=== PATIENT | male | born 1970 | race African-American/Black ===

== ENCOUNTER 2019-11-08 10:27 | Inpatient (IN) | payer MEDICAID, OTHER ==
[~2019-11-08] VITALS: Ht 165.1 cm; Wt 70.9 kg
[2019-11-08] MEDS ORDERED: SODIUM CHLORIDE 0.9% 1,000 ML IV ONE ×2 (10:48→12:08)
[2019-11-08] MEDS ORDERED: KETOROLAC 30MG/ML VIAL IV ONE (11:00)
[2019-11-08] MEDS ORDERED: ONDANSETRON HCL 4MG/2ML INJ IV ONE (11:00)
[2019-11-08 11:31] LABS: BG CARBOXYHEMOGLOBIN 0.3 % (0.5-1.5); BG DEOXYHEMOGLOBIN 1.6 % (0.0-5.0); BG FRACTION INSPIRED OXYGEN 21; BG METHEMOGLOBIN 0.3 % (0.0-1.5); BG OXYGEN SATURATION 98.4 % (92.0-98.5); BG OXYHEMOGLOBIN 97.8 % (94.0-97.0); BG PCO2 < 8.9 mmHg (35.0-45.0); BG PH 7.056 (7.350-7.450); BG PO2 148.3 mmHg (75.0-100.0); BG SAMPLE SITE LEFT RADIAL; BG TOTAL HEMOGLOBIN 14.8 g/dL (12.0-18.0); BG VENT MODE ROOM AIR
[2019-11-08] MEDS ORDERED: SODIUM BICARBONATE 8.4% 1 MEQ/ML 50ML SYR IV ONE (11:45)
[2019-11-08 12:43] LABS: HEMOGLOBIN. 14.3 g/dL (14.0-18.0); MEAN CORPUSCULAR VOLUME 97.3 fL (80.0-94.0); MEAN PLATELET VOLUME 9.3 fl (7.4-10.4); PLATELET 331 x1000/uL (130-400); RED BLOOD CELL COUNT 4.62 mill/uL (4.7-6.1); RED CELL DISTRIBUTION WIDTH 13.5 % (11.6-14.6)
[2019-11-08 12:47] LABS: CHLORIDE 94 mEq/L (98-107)
[2019-11-08] MEDS ORDERED: INSULIN REGULAR (DRIP) 100 UNITS in SODIUM CHLORIDE 0.9% 99 ML IV ONE (13:04)
[2019-11-08] MEDS ORDERED: SODIUM CHLORIDE 0.9% 1,000 ML IV STA (13:04)
[2019-11-08 13:21] LABS: BETA HYDROXYBUTYRATE > 10.0 mMol/L (0.0-0.3)
[2019-11-08] MEDS: ENOXAPARIN 40MG/0.4ML SYR SUBCUT SCH (13:30)
[2019-11-08] MEDS ORDERED: ACETAMINOPHEN 325MG TABLET PO PRN (13:30)
[2019-11-08] MEDS ORDERED: SODIUM CHLORIDE 0.9% 1,000 ML IV SCH (13:30)
[2019-11-08] MEDS ORDERED: IPRATROPIUM/ALBUTEROL 0.5-3(2.5)MG/3ML NEB HHN PRN (13:30)
[2019-11-08] MEDS ORDERED: CLONIDINE 0.1MG TABLET PO PRN (13:30)
[2019-11-08] MEDS ORDERED: LIDOCAINE HCL 1% 20ML VIAL (Pyxis) INJ ONE (13:36)
[2019-11-08 14:05] LABS: PLATELET ESTIMATE NORMAL
[2019-11-08 15:01] LABS: CHLORIDE 95 mEq/L (98-107)
[2019-11-08 15:06] LABS: PHOSPHORUS 4.7 mg/dL (2.5-4.9)
[2019-11-08 16:41] LABS: CHLORIDE 96 mEq/L (98-107)
[2019-11-08 16:47] LABS: PHOSPHORUS 4.5 mg/dL (2.5-4.9)
[2019-11-08 18:02] LABS: CLARITY URINE CLEAR (CLEAR); COLOR URINE YELLOW (YELLOW); KETONES URINE 4+ (NEGATIVE); LEUKOCYTE ESTERASE URINE NEGATIVE (NEGATIVE); NITRITE URINE NEGATIVE (NEGATIVE); OCCULT BLOOD URINE TRACE (NEGATIVE); PROTEIN URINE 1+ (NEGATIVE); SPECIFIC GRAVITY URINE 1.025 (1.005-1.030); UROBILINOGEN URINE 0.2 E.U./dL (0.2-1.0)
[2019-11-08] MEDS ORDERED: CEFTRIAXONE 1 G PREMIX 50 ML IV SCH (20:00)
[2019-11-08] MEDS ORDERED: DEXTROSE 50% WATER 50ML SYRINGE IV ONE (23:31)
[2019-11-08 23:46] LABS: CHLORIDE 105 mEq/L (98-107)
[2019-11-09] VITALS (46 sets, daily range): BP systolic 107–198; BP diastolic 46–104
[2019-11-09 00:07] LABS: PHOSPHORUS 2.1 mg/dL (2.5-4.9)
[2019-11-09] MEDS: ONDANSETRON HCL 4MG/2ML INJ IV PRN ×4 (00:56→23:56)
[2019-11-09] MEDS: DEXT 5%/0.9% NACL KCL 20MEQ/L 1,000 ML IV SCH ×4 (01:43→20:52)
[2019-11-09] MEDS ORDERED: DEXTROSE 50% WATER 50ML SYRINGE IV PRN ×3 (01:45→07:30)
[2019-11-09] MEDS ORDERED: HYDROCODONE/ACETAMINOPHEN 5/325MG TABLET PO PRN (01:45)
[2019-11-09] MEDS: PANTOPRAZOLE SODIUM 40 MG/VIAL IV SCH (02:15)
[2019-11-09] MEDS ORDERED: METOCLOPRAMIDE HCL 10MG TABLET PO PRN (02:30)
[2019-11-09] MEDS: METOCLOPRAMIDE HCL 10MG/2ML VIAL IV PRN ×2 (02:55→19:26)
[2019-11-09] MEDS: MORPHINE SULFATE 2 MG/ML CPJ (NOT FOR IM USE) IV PRN ×2 (02:55→09:46)
[2019-11-09] MEDS ORDERED: INSULIN LISPRO 100 UNITS/ML SUBCUT SCH (04:00)
[2019-11-09] MEDS ORDERED: BLOOD SUGAR DIAGNOSTIC STRIP TEST SCH (04:00)
[2019-11-09 06:17] LABS: HEMATOCRIT. 39.8 % (42.0-52.0); HEMOGLOBIN. 13.2 g/dL (14.0-18.0); MEAN CORPUSCULAR HEMOGLOBIN 31.1 pg (28.0-32.0); MEAN CORPUSCULAR VOLUME 93.3 fL (80.0-94.0); RED BLOOD CELL COUNT 4.26 mill/uL (4.7-6.1); RED CELL DISTRIBUTION WIDTH 13.1 % (11.6-14.6)
[2019-11-09 06:19] LABS: CHLORIDE 104 mEq/L (98-107)
[2019-11-09 07:52] LABS: PLATELET ESTIMATE NORMAL
[2019-11-09 07:53] LABS: PLATELET 237 x1000/uL (130-400)
[2019-11-09] MEDS: BLOOD SUGAR DIAGNOSTIC STRIP TEST SCH ×18 (08:00→23:55)
[2019-11-09] MEDS: INSULIN REGULAR (DRIP) 100 UNITS in SODIUM CHLORIDE 0.9% 100 ML IV SCH (08:00)
[2019-11-09] MEDS: DEXT 5%/0.9% NACL 1,000 ML IV SCH ×2 (09:31→13:09)
[2019-11-09] MEDS: CEFTRIAXONE 1 G PREMIX 50 ML IV SCH ×2 (09:35→20:10)
[2019-11-09] MEDS ORDERED: INSULIN GLARGINE UD 100 UNITS/ML SYR SUBCUT SCH (10:00)
[2019-11-09 10:57] LABS: CHLORIDE 108 mEq/L (98-107)
[2019-11-09] MEDS: ENOXAPARIN 40MG/0.4ML SYR SUBCUT SCH (13:18)
[2019-11-09 15:54] LABS: CHLORIDE 114 mEq/L (98-107)
[2019-11-09 22:12] LABS: CHLORIDE 117 mEq/L (98-107)
[2019-11-10] VITALS (28 sets, daily range): BP systolic 100–183; BP diastolic 57–104
[2019-11-10] MEDS: INSULIN REGULAR (DRIP) 100 UNITS in SODIUM CHLORIDE 0.9% 100 ML IV SCH (00:03)
[2019-11-10] MEDS: BLOOD SUGAR DIAGNOSTIC STRIP TEST SCH ×14 (01:06→21:11)
[2019-11-10] MEDS: DEXT 5%/0.9% NACL KCL 20MEQ/L 1,000 ML IV SCH ×5 (01:07→17:55)
[2019-11-10 02:27] LABS: CHLORIDE 118 mEq/L (98-107)
[2019-11-10] MEDS: METOCLOPRAMIDE HCL 10MG/2ML VIAL IV PRN ×2 (04:28→18:35)
[2019-11-10 05:41] LABS: HEMATOCRIT. 38.4 % (42.0-52.0); HEMOGLOBIN. 13.2 g/dL (14.0-18.0); MEAN CORPUSCULAR HEMOGLOBIN 31.5 pg (28.0-32.0); MEAN CORPUSCULAR VOLUME 91.5 fL (80.0-94.0); MEAN PLATELET VOLUME 7.9 fl (7.4-10.4); PLATELET 266 x1000/uL (130-400); RED CELL DISTRIBUTION WIDTH 13.1 % (11.6-14.6)
[2019-11-10] MEDS ORDERED: DEXTROSE 50% WATER 50ML SYRINGE IV PRN ×2 (05:45)
[2019-11-10 05:49] LABS: CHLORIDE 116 mEq/L (98-107)
[2019-11-10] MEDS ORDERED: INSULIN GLARGINE UD 100 UNITS/ML SYR SUBCUT SCH (06:00)
[2019-11-10 07:00] LABS: PLATELET ESTIMATE NORMAL
[2019-11-10] MEDS: INSULIN LISPRO 100 UNITS/ML SUBCUT SCH ×4 (08:20→21:00)
[2019-11-10] MEDS: INSULIN GLARGINE UD 100 UNITS/ML SYR SUBCUT SCH ×2 (08:47→21:11)
[2019-11-10] MEDS: PANTOPRAZOLE SODIUM 40 MG/VIAL IV SCH (09:06)
[2019-11-10] MEDS: CEFTRIAXONE 1 G PREMIX 50 ML IV SCH ×2 (09:06→21:11)
[2019-11-10] MEDS ORDERED: PANTOPRAZOLE 40MG DR TABLET PO SCH (10:45)
[2019-11-10 11:22] LABS: CHLORIDE 113 mEq/L (98-107)
[2019-11-10] MEDS: ONDANSETRON HCL 4MG/2ML INJ IV PRN (13:23)
[2019-11-10] MEDS: ENOXAPARIN 40MG/0.4ML SYR SUBCUT SCH (13:23)
[2019-11-10] MEDS: MORPHINE SULFATE 2 MG/ML CPJ (NOT FOR IM USE) IV PRN ×2 (18:36→22:38)
[2019-11-11] VITALS (24 sets, daily range): BP systolic 117–176; BP diastolic 48–98
[2019-11-11] MEDS: ONDANSETRON HCL 4MG/2ML INJ IV PRN ×2 (05:33→08:12)
[2019-11-11] MEDS: MORPHINE SULFATE 2 MG/ML CPJ (NOT FOR IM USE) IV PRN ×2 (05:33→22:06)
[2019-11-11 06:12] LABS: CHLORIDE 110 mEq/L (98-107)
[2019-11-11 06:14] LABS: HEMATOCRIT. 36.7 % (42.0-52.0); HEMOGLOBIN. 12.8 g/dL (14.0-18.0); MEAN CORPUSCULAR HEMOGLOBIN 32.1 pg (28.0-32.0); MEAN CORPUSCULAR VOLUME 92.4 fL (80.0-94.0); MEAN PLATELET VOLUME 9.6 fl (7.4-10.4); PLATELET 172 x1000/uL (130-400); RED BLOOD CELL COUNT 3.97 mill/uL (4.7-6.1); RED CELL DISTRIBUTION WIDTH 13.4 % (11.6-14.6)
[2019-11-11] MEDS: DEXT 5%/0.9% NACL KCL 20MEQ/L 1,000 ML IV SCH ×2 (07:45)
[2019-11-11] MEDS: PANTOPRAZOLE SODIUM 40 MG/VIAL IV SCH (08:00)
[2019-11-11] MEDS: BLOOD SUGAR DIAGNOSTIC STRIP TEST SCH ×4 (08:00→21:28)
[2019-11-11] MEDS: CEFTRIAXONE 1 G PREMIX 50 ML IV SCH (08:00)
[2019-11-11] MEDS: INSULIN LISPRO 100 UNITS/ML SUBCUT SCH ×3 (08:02→21:00)
[2019-11-11] MEDS: SODIUM CHLORIDE 0.9% 1,000 ML IV SCH ×2 (09:16→18:35)
[2019-11-11] MEDS ORDERED: INSULIN GLARGINE UD 100 UNITS/ML SYR SUBCUT SCH (10:00)
[2019-11-11 10:36] LABS: PLATELET ESTIMATE NORMAL
[2019-11-11] MEDS: ENOXAPARIN 40MG/0.4ML SYR SUBCUT SCH (13:29)
[2019-11-11] MEDS: METOCLOPRAMIDE HCL 10MG/2ML VIAL IV SCH ×3 (13:34→23:45)
[2019-11-11] MEDS: AMLODIPINE 5MG TABLET PO SCH (21:27)
[2019-11-11] MEDS: INSULIN GLARGINE UD 100 UNITS/ML SYR SUBCUT SCH (23:40)
[2019-11-12] VITALS: BP 152/78
[2019-11-12 04:00] VITALS: BP 166/76
[2019-11-12] MEDS: SODIUM CHLORIDE 0.9% 1,000 ML IV SCH (04:28)
[2019-11-12] MEDS: MORPHINE SULFATE 2 MG/ML CPJ (NOT FOR IM USE) IV PRN (04:39)
[2019-11-12] MEDS: METOCLOPRAMIDE HCL 10MG/2ML VIAL IV SCH (06:34)
[2019-11-12] MEDS: BLOOD SUGAR DIAGNOSTIC STRIP TEST SCH (07:13)
[2019-11-12] MEDS: INSULIN LISPRO 100 UNITS/ML SUBCUT SCH (07:50)
[2019-11-12 08:00] VITALS: BP 129/75
[2019-11-12] MEDS: AMLODIPINE 5MG TABLET PO SCH (08:37)
[2019-11-12] MEDS: PANTOPRAZOLE SODIUM 40 MG/VIAL IV SCH (08:37)
[2019-11-12] MEDS ORDERED: LANTUSUD SUBCUT (09:20)
[2019-11-12] MEDS ORDERED: METO-293 MT (09:20)
[2019-11-12] MEDS ORDERED: PROT40 MT (09:20)
[2019-11-12] MEDS ORDERED: AMLO10TA80 MT (09:20)
[2019-11-12] MEDS: INSULIN GLARGINE UD 100 UNITS/ML SYR SUBCUT SCH (10:00)
[2019-11-12 11:02] VITALS: BP 129/75
== END 2019-11-12 11:45 | disposition home or self-care (01) | DRG 420 ==
LOC: ER 10:38 → EDBEDREQTM 12:15 → EDBEDREQ 13:13 → ENRESERV 22:11 → ER 11-09 00:30 → CVICU 11-09 00:43 → 6EST 11-11 12:20
PROVIDERS: ADMIT Internal Medicine; ATTEND Internal Medicine
DX: E10.10 Type 1 diabetes mellitus with ketoacidosis without coma (principal); K31.84 Gastroparesis; E10.43 Type 1 diabetes mellitus with diabetic autonomic (poly)neuropathy; E87.5 Hyperkalemia; E87.1 Hypo-osmolality and hyponatremia; D72.825 Bandemia; I10 Essential (primary) hypertension; Z79.4 Long term (current) use of insulin
CPT/HCPCS: 36415; 36600; 71045; 80048; 80053; 81003; 82010; 82375; 82962; 83036; 83735; 84100; 84443; 84484; 85025; 93005; 93970; 99291; C9113; J0696; J1650; J1815; J1885; J2270; J2405; J2765; J3480; J3490; J7030; J7042; J7050; J8597